=== PATIENT | male | born 1950 | race Caucasian/White ===

== ENCOUNTER → 2017-03-06 | Day surgery (SDC) | payer OTHER ==
[2017-02-20 10:59] VITALS: Ht 170.2 cm; Wt 72.7 kg
[~2017-03-06] VITALS: Ht 170.2 cm; Wt 72.7 kg
[~2017-03-06] MED LIST: 500ML BSS 0.3ML EPI 1:1000PF IRRIG ONE; ACETAMINOPHEN 325 MG TAB PO PRN; AMVISC PLUS 0.8ML SYRINGE INT OCU ONE; ASPI81TA28 PO; ATOR-24 PO; BROM0.07 OPR; BSS FLUSH ONE; ENDOCOAT 0.85ML SYRINGE INT OCU ONE; EpINEphrine INJ 1MG/ML AMP 1 MG/ML AMP ONE; FAMO20TA11 PO; FENTANYL CITRATE INJ 50 MCG/1 ML 2 ML VIAL ONE; LACTATED RINGER'S 1000ML 500 ML IV SCH; LIDOCAINE 4% OP SOLN DROP CHARGE ONE; LIDOCAINE 4% OP SOLN DROP CHARGE OPR SCH; LIDOCAINE HCL 1% MPF 2 ML VIAL ONE; MIDAZOLAM HCL 1 MG/ML 2ML VIAL ONE; MIX: 4ML BSS 1ML EPI 1:1000 PF TOP ONE; MOXIFLOXACIN OPH SOLN PER DROP CHARGE ONE; POVIDONE-IODINE OP SOLN 30 ML BTL ONE; PRED1SUS OPR; PROPARACAINE 0.5% OP SOLN PER DROP CHARGE OPR SCH; SERT50TA PO; TOBRAMYCIN/DEXAMETHASONE OPH OINT PER APPLN CHARGE ONE; WARF4TAB43 PO
[2017-03-06] MEDS: PHENYLEPHRINE HCL 2.5% OP SOLN PER DROP CHARGE OPR SCH ×3 (10:11→10:21)
[2017-03-06] MEDS: TROPICAMIDE 1% OP SOLN PER DROP CHARGE OPR SCH ×3 (10:12→10:22)
[2017-03-06] MEDS: CYCLOPENTOLATE HCL 1% OP SOLN PER DROP CHARGE OPR SCH ×3 (10:13→10:23)
[2017-03-06] MEDS: MOXIFLOXACIN OPH SOLN PER DROP CHARGE OPR SCH ×3 (10:14→10:24)
--- NOTE | 2017-03-06 10:53 | History & Physical Bridge - [place] ---
H&P Re-Evaluation Bridge Note: I have examined the patient, reviewed the History & Physical and in the interval since the performance of the History & Physical I have noted the following changes of clinical significance: No changes noted. Right eye cataract surgery.
--- NOTE | 2017-03-06 12:01 | [facility] Post Operative Brief Note ---
Immediate Operative Summary Operative Date March 06, 2017. Pre-Operative Diagnosis Right Eye Cataract Post-Operative Diagnosis same Procedure(s) Performed Right Cataract Phacoemulsification With Intraocular Lens Implant Surgeon Dr. Shravan Dietz Principal [employer] Architect Surgeon(s) 0 Estimated Blood Loss 0 Findings right cataract Specimens none Complication(s) None Disposition
--- NOTE | 2017-03-06 12:02 | [facility] Operative Report ---
Operative Report Date of Service March 06, 2017. Operative Report Phaco with monofocal IOL DATE OF OPERATION: 03/06/17 PREOPERATIVE DIAGNOSIS: Senile nuclear cataract, right eye POSTOPERATIVE DIAGNOSIS: Senile nuclear cataract, right eye PROCEDURE PERFORMED: Phacoemulsification with intraocular lens implantation, right eye SURGEON: Dr. Chintan Dietz ANESTHESIA: Topical with 1% intracameral lidocaine and monitored anesthesia care COMPLICATIONS: None DESCRIPTION OF PROCEDURE: After positively identifying the patient both verbally and by wristband in the preoperative area, the right eye was marked as the operative eye. The patient was then brought back to the operating room by the anesthesia and nursing staff where they were given a drop of Lidocaine and betadine into the operative eye. They were then sterilely prepped and draped in the standard fashion typical for ophthalmic surgery. Steri-strips were placed along the upper eyelids to keep the lashes back, and a lid speculum was placed into the operative eye. At this point, a documented time out was performed with members of the ophthalmology, nursing, and anesthesia staffs all agreeing upon the correct patient, correct location for surgery, correct procedure, and correct type and power of intraocular lens to be implanted. The microscope was then swung into position. First, a paracentesis wound was made using a sideport blade. Then, in sequence, 1% preservative-free lidocaine followed by Endocoat viscoelastic was injected into the anterior chamber. Next , the main incision was made with a keratome blade in triplanar fashion. A sharp cystotome was introduced into the eye and used to create a tear in the anterior capsule, which was directed into a continuous curvilinear capsulorrhexis using Utrata forceps. Hydrodissection was then performed with BSS on a flat-tip cannula. Next, the phacoemulsification handpiece was introduced into the eye and used to remove the nucleus in a [id number] fashion. This was done without complication and then the irrigation-aspiration handpiece was introduced into the eye and used to remove all remaining cortical and epinuclear material. Amvisc was then injected into the anterior chamber as well as into the capsular bag and using the lens injector system, an MX60 21.0 D lens, serial number [id number], and expiration date 10/2019 was injected into the capsular bag and rotated into the correct position. Next, the irrigation- aspiration handpiece was used to remove all remaining Amvisc. BSS was used to hydrate the main wound, and then BSS was injected into the paracentesis site to reach physiologic pressure and then the main wound was checked and found to be watertight. The patient was given drops of Vigamox and Tobradex ointment into the operative eye, and then the surrounding area was cleaned and dried. A clear plastic shield was placed over the eye and the patient was then sat up and taken from the operating room by the anesthesia staff having tolerated the procedure well and suffering no complications. DISPOSITION: The patient was returned to the recovery room in stable condition. I attest to the content of the Intraoperative Record and any orders documented therein. Any exceptions are noted below.
--- NOTE | 2017-03-06 12:03 | Discharge Instructions-SurgCtr ---
Discharge Instructions Date of Service March 06, 2017. Visit Reason for Visit: Cataract Right Eye Discharge Discharge Diagnosis / Problem: right cataract Discharge Goals Goal(s): Decrease discomfort, Improve function Activity Recommendations Activity Limitations: as noted below Anesthesia . Post Anesthesia Instructions: If you have had General Anesthesia or IV Sedation: * Do not drive today. * Resume driving when surgeon permits. * Do not make important decisions or sign legal documents today. * Call surgeon for: 1. Temperature elevations greater than 101 degrees F. 2. Uncontrollable pain. 3. Excessive bleeding. 4. Persistent nausea and vomiting. 5. Medication intolerance (nausea, vomiting or rash). * For nausea and vomiting use only clear liquids such as: tea, soda, bouillon until nausea subsides, then gradually increase diet as tolerated. * If you have any concerns or questions, call your surgeon's office. If physician is unavailable and it is an emergency, call 911 or go to the nearest emergency room. . Instructions / Follow-Up Instructions / Follow-Up ACTIVITY RECOMMENDATIONS: * Light activities. * You may walk outside, read, watch television. * You may notice redness on the white part of the eye and some blurry vision - this is normal. MEDICATIONS: Resume previous medications unless instructed otherwise by your surgeon. Start all eye drops at 2 pm today: * Eye drops (today): Prednisone - one drop in operative eye every 2 hours while awake Ofloxacin - one drop in operative eye every 2 hours while awake Prolensa - one drop in operative eye daily SPECIAL CARE INSTRUCTIONS: * Tape plastic shield over eye to sleep at night. Call your doctor at with any concerns or problems. FOLLOW UP VISIT: Follow-up with Dr Dietz at [place] office as scheduled. Diet Recommendations Home Diet: no limitations Procedures Procedures Performed: Right Cataract Phacoemulsification With Intraocular Lens Implant Pending Studies Studies pending at discharge: no Medical Emergencies . Who to Call and When: Medical Emergencies: If at any time you feel your situation is an emergency, please call 911 immediately. . Non-Emergent Contact Non-Emergency issues call your: Surgeon . . "Provider Documentation" section prepared by Chintan Dietz. .
[2017-03-06 12:14] VITALS: TEMP 36.4
--- NOTE | 2017-03-06 12:20 | Anesthesia Progress Nt - [facility] ---
Anesthesia Post Op Note Date & Time March 06, 2017 at 12:21 Vital Signs Pain Intensity: 0 Vital Signs Past 12 Hours Date Time Temp Pulse Resp B/P Pulse Ox O2 Delivery O2 Flow Rate FiO2 03/06/17 12:14 36.4 69 16 134/68 100 Room Air 03/06/17 10:01 36.6 79 20 156/70 98 Room Air Notes Mental Status: alert / awake / arousable, participated in evaluation Pt Amnestic to Procedure: Yes Nausea / Vomiting: adequately controlled Pain: adequately controlled Airway Patency, RR, SpO2: stable & adequate BP & HR: stable & adequate Hydration State: stable & adequate Anesthetic Complications: no major complications apparent
[2017-03-06 12:31] VITALS: BP 127/71; PULSE 79; O2SAT 97
== END | disposition home or self-care (01) ==
LOC: X.SURG 09:32
PROVIDERS: ATTEND Ophthalmology
DX: H25.11 Age-related nuclear cataract, right eye (principal); J44.9 Chronic obstructive pulmonary disease, unspecified; Z79.01 Long term (current) use of anticoagulants; Z68.25 Body mass index [BMI] 25.0-25.9, adult; Z86.73 Personal history of transient ischemic attack (TIA), and cerebral infarction without residual deficits

== ENCOUNTER → 2017-03-20 | Day surgery (SDC) | payer OTHER ==
[2017-03-14 08:56] VITALS: Ht 170.2 cm; Wt 72.7 kg
[~2017-03-20] VITALS: Ht 170.2 cm; Wt 72.7 kg
[~2017-03-20] MED LIST changes: +ATROPINE SULFATE 0.1 MG/ML 5ML SYR IV PRN; +EpHEDrine SULFATE INJ 50 MG/ML AMP IV PRN; +FENTANYL CITRATE INJ 50 MCG/1 ML 2 ML VIAL IV PRN; +FLUMAZENIL 0.1 MG/1 ML 10 ML VIAL IV PRN; +HYDROmorphone INJ 2 MG/ML SYR/VIAL IV PRN; +LABETALOL HCL IV 5 MG/ML 20ML IV PRN; +LIDOCAINE 4% OP SOLN DROP CHARGE OPL SCH; -LIDOCAINE 4% OP SOLN DROP CHARGE OPR SCH; +MEPERIDINE HCL 25 MG/ML CARP IV PRN; +NALOXONE HCL 0.4 MG/1 ML VIAL/CARP IV PRN; +ONDANSETRON INJ 2 MG/ML 2 ML VIAL IV PRN; +PHENYLEPHRINE 100MCG/ML 5ML SYR IV PRN; +PROPARACAINE 0.5% OP SOLN PER DROP CHARGE OPL SCH; -PROPARACAINE 0.5% OP SOLN PER DROP CHARGE OPR SCH
[2017-03-20] MEDS: PHENYLEPHRINE HCL 2.5% OP SOLN PER DROP CHARGE OPL SCH ×3 (08:00→08:10)
[2017-03-20] MEDS: TROPICAMIDE 1% OP SOLN PER DROP CHARGE OPL SCH ×3 (08:01→08:11)
[2017-03-20] MEDS: CYCLOPENTOLATE HCL 1% OP SOLN PER DROP CHARGE OPL SCH ×3 (08:02→08:12)
[2017-03-20] MEDS: MOXIFLOXACIN OPH SOLN PER DROP CHARGE OPL SCH ×3 (08:03→08:13)
--- NOTE | 2017-03-20 08:10 | History & Physical Bridge - [place] ---
H&P Re-Evaluation Bridge Note: I have examined the patient, reviewed the History & Physical and in the interval since the performance of the History & Physical I have noted the following changes of clinical significance: No changes noted. Left eye cataract surgery.
--- NOTE | 2017-03-20 09:21 | [facility] Post Operative Brief Note ---
Immediate Operative Summary Operative Date March 20, 2017. Pre-Operative Diagnosis Left eye cataract Post-Operative Diagnosis same Procedure(s) Performed Left Cataract Phacoemulsification With Intraocular Lens Implant Surgeon Dr Dietz Pedigree Tracer Surgeon(s) none Estimated Blood Loss 0 Findings left cataract Specimens none Complication(s) None Disposition
--- NOTE | 2017-03-20 09:22 | [facility] Operative Report ---
Operative Report Date of Service March 20, 2017. Operative Report Phaco with monofocal IOL DATE OF OPERATION: 03/20/17 PREOPERATIVE DIAGNOSIS: Senile nuclear cataract, left eye POSTOPERATIVE DIAGNOSIS: Senile nuclear cataract, left eye PROCEDURE PERFORMED: Phacoemulsification with intraocular lens implantation, left eye SURGEON: Dr. Chintan Dietz ANESTHESIA: Topical with 1% intracameral lidocaine and monitored anesthesia care COMPLICATIONS: None DESCRIPTION OF PROCEDURE: After positively identifying the patient both verbally and by wristband in the preoperative area, the left eye was marked as the operative eye. The patient was then brought back to the operating room by the anesthesia and nursing staff where they were given a drop of Lidocaine and betadine into the operative eye. They were then sterilely prepped and draped in the standard fashion typical for ophthalmic surgery. Steri-strips were placed along the upper eyelids to keep the lashes back, and a lid speculum was placed into the operative eye. At this point, a documented time out was performed with members of the ophthalmology, nursing, and anesthesia staffs all agreeing upon the correct patient, correct location for surgery, correct procedure, and correct type and power of intraocular lens to be implanted. The microscope was then swung into position. First, a paracentesis wound was made using a sideport blade. Then, in sequence, 1% preservative-free lidocaine followed by Endocoat viscoelastic was injected into the anterior chamber. Next , the main incision was made with a keratome blade in triplanar fashion. A sharp cystotome was introduced into the eye and used to create a tear in the anterior capsule, which was directed into a continuous curvilinear capsulorrhexis using Utrata forceps. Hydrodissection was then performed with BSS on a flat-tip cannula. Next, the phacoemulsification handpiece was introduced into the eye and used to remove the nucleus in a ydbllk-ziy-azlgets fashion. This was done without complication and then the irrigation-aspiration handpiece was introduced into the eye and used to remove all remaining cortical and epinuclear material. Amvisc was then injected into the anterior chamber as well as into the capsular bag and using the lens injector system, an MX60 22.0 D lens, serial number [id number], and expiration date 07/2018 was injected into the capsular bag and rotated into the correct position. Next, the irrigation- aspiration handpiece was used to remove all remaining Amvisc. BSS was used to hydrate the main wound, and then BSS was injected into the paracentesis site to reach physiologic pressure and then the main wound was checked and found to be watertight after adding Resure sealant. The patient was given drops of Vigamox and Tobradex ointment into the operative eye, and then the surrounding area was cleaned and dried. A clear plastic shield was placed over the eye and the patient was then sat up and taken from the operating room by the anesthesia staff having tolerated the procedure well and suffering no complications. DISPOSITION: The patient was returned to the recovery room in stable condition. I attest to the content of the Intraoperative Record and any orders documented therein. Any exceptions are noted below.
--- NOTE | 2017-03-20 09:23 | Discharge Instructions-SurgCtr ---
Discharge Instructions Date of Service March 20, 2017. Visit Reason for Visit: Cataract Left Eye Discharge Discharge Diagnosis / Problem: left cataract Discharge Goals Goal(s): Decrease discomfort, Improve function Activity Recommendations Activity Limitations: as noted below Anesthesia . Post Anesthesia Instructions: If you have had General Anesthesia or IV Sedation: * Do not drive today. * Resume driving when surgeon permits. * Do not make important decisions or sign legal documents today. * Call surgeon for: 1. Temperature elevations greater than 101 degrees F. 2. Uncontrollable pain. 3. Excessive bleeding. 4. Persistent nausea and vomiting. 5. Medication intolerance (nausea, vomiting or rash). * For nausea and vomiting use only clear liquids such as: tea, soda, bouillon until nausea subsides, then gradually increase diet as tolerated. * If you have any concerns or questions, call your surgeon's office. If physician is unavailable and it is an emergency, call 911 or go to the nearest emergency room. . Instructions / Follow-Up Instructions / Follow-Up ACTIVITY RECOMMENDATIONS: * Light activities. * You may walk outside, read, watch television. * You may notice redness on the white part of the eye and some blurry vision - this is normal. MEDICATIONS: Resume previous medications unless instructed otherwise by your surgeon. Start all eye drops at 11: 30 am today: * Eye drops (today): Prednisone - one drop in operative eye every 2 hours while awake Gatifloxacin - one drop in operative eye every 2 hours while awake Prolensa - one drop in operative eye daily SPECIAL CARE INSTRUCTIONS: * Tape plastic shield over eye to sleep at night. Call your doctor at with any concerns or problems. FOLLOW UP VISIT: Follow-up with Dr Dietz at [facility] as scheduled. Diet Recommendations Home Diet: no limitations Procedures Procedures Performed: Left Cataract Phacoemulsification With Intraocular Lens Implant Pending Studies Studies pending at discharge: no Medical Emergencies . Who to Call and When: Medical Emergencies: If at any time you feel your situation is an emergency, please call 911 immediately. . Non-Emergent Contact Non-Emergency issues call your: Surgeon . . "Provider Documentation" section prepared by Chintan Dietz. .
[2017-03-20 09:28] VITALS: TEMP 36.7
--- NOTE | 2017-03-20 09:37 | Anesthesia Progress Nt - [facility] ---
Anesthesia Post Op Note Date & Time March 20, 2017 at 09:37 Vital Signs Pain Intensity: 0 Vital Signs Past 12 Hours Date Time Temp Pulse Resp B/P Pulse Ox O2 Delivery O2 Flow Rate FiO2 03/20/17 09:28 36.7 76 16 135/64 97 Room Air 03/20/17 07:54 37.0 78 20 136/72 97 Room Air Notes Mental Status: alert / awake / arousable, participated in evaluation Pt Amnestic to Procedure: Yes Nausea / Vomiting: adequately controlled Pain: adequately controlled Airway Patency, RR, SpO2: stable & adequate BP & HR: stable & adequate Hydration State: stable & adequate Anesthetic Complications: no major complications apparent
[2017-03-20 09:42] VITALS: BP 135/61; PULSE 65; O2SAT 100
== END | disposition home or self-care (01) ==
LOC: X.SURG 07:37
PROVIDERS: ATTEND Ophthalmology
DX: H25.12 Age-related nuclear cataract, left eye (principal); E78.00 Pure hypercholesterolemia, unspecified; Z86.73 Personal history of transient ischemic attack (TIA), and cerebral infarction without residual deficits; F17.210 Nicotine dependence, cigarettes, uncomplicated; Z79.82 Long term (current) use of aspirin; Z79.01 Long term (current) use of anticoagulants; Z79.899 Other long term (current) drug therapy